=== PATIENT | male | born 1970 | race African-American/Black ===

== ENCOUNTER 2017-10-13 05:53 | Emergency (ER) | payer OTHER ==
[~2017-10-13] VITALS: Ht 172.7 cm; Wt 73.0 kg
[2017-10-13 07:45] VITALS: BP 157/95
== END 2017-10-13 09:00 | disposition home or self-care (01) ==
LOC: ER 05:53
DX: G40.409 Other generalized epilepsy and epileptic syndromes, not intractable, without status epilepticus (principal); I10 Essential (primary) hypertension; F17.200 Nicotine dependence, unspecified, uncomplicated
CPT/HCPCS: 99283

== ENCOUNTER 2025-07-08 00:59 | Emergency (ER) | payer OTHER ==
[~2025-07-08] VITALS: Ht 175.3 cm; Wt 63.6 kg
[2025-07-08 01:17] VITALS: TEMP 36.6; O2SAT 100
[2025-07-08 01:43] LABS: BASOPHILS % 1.2 % (0.0-2.0); EOSINOPHILS % 3.1 % (0.0-5.0); HEMATOCRIT. 41.9 % (42.0-52.0); HEMOGLOBIN. 13.7 g/dL (14.0-18.0); LYMPHOCYTES % 26.3 % (20.0-50.0); MEAN PLATELET VOLUME 8.5 fl (7.4-10.4); MONOCYTES % 11.8 % (2.0-8.0); NEUTROPHILS % 57.6 % (40.0-76.0); PLATELET 247 x1000/uL (130-400); RED BLOOD CELL COUNT 4.46 mill/uL (4.7-6.1); RED CELL DISTRIBUTION WIDTH 13.8 % (11.6-14.6)
[2025-07-08 01:55] LABS: CREATININE 0.9 mg/dL (0.6-1.3); TROPONIN I HIGH SENSITIVITY 9 ng/L (3.0-53)
[2025-07-08 01:56] LABS: PROTEIN TOTAL 7.3 g/dL (6.0-8.3); UREA NITROGEN BLOOD 8 mg/dL (9-23)
[2025-07-08 01:57] LABS: ASPARTATE AMINOTRANSFERASE 23 IU/L (<34)
[2025-07-08 01:58] LABS: BILIRUBIN DIRECT < 0.1 mg/dL (<=3.0); BILIRUBIN TOTAL 0.3 mg/dL (0.1-1.0)
[2025-07-08 02:18] LABS: BG BASE EXCESS 0.3 mmol/L (-2.0-3.0); BG CARBOXYHEMOGLOBIN 1.0 % (0.5-1.5); BG DEOXYHEMOGLOBIN 1.0 % (0.0-5.0); BG FLOW(L/min) 6.00 L/min; BG FRACTION INSPIRED OXYGEN 28; BG HCO3 ACT 25.1 mmol/L (21.0-28.0); BG METHEMOGLOBIN 0.2 % (0.5-1.5); BG OXYGEN SATURATION 99.0 % (94.0-98.0); BG OXYHEMOGLOBIN 97.8 % (94.0-98.0); BG PCO2 41.5 mmHg (35.0-48.0); BG PH 7.400 (7.350-7.450); BG PO2 135.6 mmHg (83.0-108.0); BG SAMPLE SITE RIGHT BRACHIAL; BG TOTAL HEMOGLOBIN 13.9 g/dL (13.5-17.5); BG VENT MODE COOL AEROSOL
[2025-07-08 03:00] VITALS: O2SAT 98
[2025-07-08 03:49] VITALS: BP 155/100; PULSE 81; RESP 18; O2SAT 100
== END 2025-07-08 05:27 | disposition left against medical advice (07) ==
LOC: ER 00:59 → EDBEDREQTM 03:39 → EDBEDREQ 03:39 → ENRESERV 04:55 → ER 05:27 → CMPBEDREQ 07:30
DX: J95.03 Malfunction of tracheostomy stoma (principal); J96.01 Acute respiratory failure with hypoxia; I10 Essential (primary) hypertension; F17.200 Nicotine dependence, unspecified, uncomplicated; G40.909 Epilepsy, unspecified, not intractable, without status epilepticus; Z85.21 Personal history of malignant neoplasm of larynx; Z98.890 Other specified postprocedural states
CPT/HCPCS: 80076; 80048; 85025; 84484; 36415; 71045; 94640; 82805; 82375; 93005; 31720; 98960; 99291; 36600; Z7610 ×2; 94070; 94664